=== PATIENT | male | born 1965 | race Caucasian/White ===

== ENCOUNTER → 2017-11-12 07:56 | Outpatient (CLI) | payer BC | END | disposition home or self-care (01) | LOC: D.CT 07:56 | DX: K57.32 Diverticulitis of large intestine without perforation or abscess without bleeding (principal); K57.92 Diverticulitis of intestine, part unspecified, without perforation or abscess without bleeding ==

== ENCOUNTER → 2017-11-25 07:49 | Outpatient (CLI) | payer BC ==
[2017-11-25 08:33] LABS: ALBUMIN 3.7 g/dL (3.4-5.0); ALKALINE PHOSPHATASE 75 U/L (46-116); ALT (SGPT) 38 U/L (10-68); BILIRUBIN - DIRECT 0.17 mg/dL (0.00-0.30); BILIRUBIN - TOTAL 1.07 mg/dL (0.2-1.3); CALC OSMOLALITY 278 mosm/kg (275-300); CALCIUM 8.8 mg/dL (8.5-10.1); CARBON DIOXIDE 31.1 mmol/L (21.0-32.0); CHLORIDE - SERUM 102 mmol/L (98-107); CHOL - HDL RATIO 5.1 ratio (2.3-4.9); CHOLESTEROL, TOTAL 169 mg/dL (0-200); CREATININE - SERUM 0.9 mg/dL (0.6-1.3); GLUCOSE 141 mg/dL (74-106); HDL CHOLESTEROL 33 mg/dL (32-96); LDL CHOLESTEROL 94 mg/dL (0-100); LDL-HDL RATIO 2.8 ratio (1.5-3.5); POTASSIUM - SERUM 4.2 mmol/L (3.5-5.1); PROTEIN - SERUM 7.3 g/dL (6.4-8.2); SODIUM 139 mmol/L (136-145); TRIGLYCERIDE 211 mg/dL (30-200); UREA NITROGEN 10 mg/dL (7-18); eGFR NON AFRICAN AMERICAN > 90 mL/min (90-120)
== END | disposition home or self-care (01) ==
LOC: D.LAB 07:49
PROVIDERS: Internal Medicine Gastroenterology
DX: K76.0 Fatty (change of) liver, not elsewhere classified (principal)

== ENCOUNTER 2020-05-01 09:21 | Day surgery (SDC) | payer BC ==
[~2020-05-01] VITALS: Ht 172.7 cm; Wt 90.9 kg
--- NOTE | ~2020-05-01 | OP ---
PATIENT NAME: RENATO MEAD MEDICAL RECORD: [id number] :61 LOCATION:D.OPS ADMISSION DATE: SURGEON: YRAN FANG MD DATE OF OPERATION: 05/01/2020 PREOPERATIVE DIAGNOSIS: Hematochezia. POSTOPERATIVE DIAGNOSES: Hematochezia with 1 cecal polyp, sessile, 8 mm. PROCEDURES: 1. Total colonoscopy to cecum. 2. Hot biopsy forceps polypectomy times 1. SURGEON: Ryan Fang MD CLASS A REGIONAL DRIVERS: None. BLOOD LOSS: Minimal. ANESTHESIA: IV sedation. COMPLICATIONS: None. The risks, possible complications, and alternatives to the procedure were explained to the patient. He elects to proceed. ENDOSCOPIC COURSE: The patient was conveyed to the endoscopy suite electively on 05/01/2020. IV sedation was induced by anesthesia staff. The patient was placed in the Jimenez position. A digital rectal examination was performed. A colonoscope was inserted through the anus. It was easily advanced to the cecum. The prep was marginal. I slowly withdrew the endoscope. I irrigated and aspirated extensively. I dragged the folds. The pullback was greater than a 15-minute pullback. Within the cecum, there was 1 polyp which was removed in its entirety utilizing the hot biopsy forceps polypectomy technique. I noted no other polyps or masses. A retroflexed view was obtained in the rectum. I noted inflamed internal hemorrhoids, likely the source of the patient's hematochezia. I then unretroflexed the scope and removed it under direct vision. I will see the patient in my office in 2-3 weeks. I will plan for his next colonoscopy to take place in 3 years. TRANSINT:[id number] Voice Confirmation ID: [id number] DOCUMENT ID: [id number] RYAN FANG MD CC: LENARD SOLO [id number] DICTATION DATE: 05/01/20 1319 ALTERATION SPECIALIST: 05/01/20 2208 [facility] 05/01/20 [place] [id number]
[2020-05-01 09:57] LABS: POTASSIUM - SERUM 3.9 mmol/L (3.5-5.1)
[2020-05-01] MEDS ORDERED: GLUCOPHAGE500 MG PO (10:26)
[2020-05-01] MEDS ORDERED: LISINOPRIL10 MG PO (10:27)
[2020-05-01] MEDS ORDERED: OMEPRAZOLE40 MG PO (10:32)
[2020-05-01 10:39] LABS: HEMATOCRIT 44.8 % (42.0-54.0); MCH 32.3 pg (26.0-34.0); MCHC 35.7 g/dL (31.0-37.0); MCV 90.3 fL (80.0-100.0); MEAN PLATELET VOLUME 9.2 fL (7.4-10.4); RBC 4.96 10x6/uL (4.20-6.10); RDW 13.1 % (11.5-14.5); WBC 7.9 10x3/uL (4.8-10.8)
[2020-05-01 10:55] LABS: ANION GAP 9.9 mmol/L (8-16); CALCIUM 9.1 mg/dL (8.5-10.1); CREATININE - SERUM 1.1 mg/dL (0.6-1.3)
[2020-05-01 11:01] VITALS: Ht 172.7 cm; Wt 90.9 kg
--- NOTE | 2020-05-01 14:32 | NUR ---
1405 IV DC'ED WITH CATH INTACT & 100ML LTC. DRESSING. Ledy LRAES R.N. 1415 DRESSED. AWAKE & ALERT. GIVEN DISCHARGE INFORMATION INCLUDING: RX'S 2: RECTAL ROACKETS & FLAGYL, MED REC, SHEET LISTING NSAIDS TO AVOID, RTC APPT., & [facility] POST ENDOSCOPIC D/C INSTRUCTIONS. PT VOICED UNDERSTANDING. TO PRIVATE CAR PER WHEELCHAIR BY STAFF. HOME WITH , NUNO MEAD. Ledy LARES R.N.
--- NOTE | 2020-05-01 18:31 | HP ---
PATIENT: RENATO MEAD MEDICAL RECORD: [id number] ACCOUNT: [id number] LOCATION:[facility] : 61 ADMISSION DATE: 05/01/20 PCP: LENARD SOLO MD HISTORY AND PHYSICAL EXAMINATION CHIEF COMPLAINT: Rectal bleeding. HISTORY OF PRESENT ILLNESS: The patient was having rectal bleeding. No melena. He is unsure whether he has had a history of colon polyps or not in the past. He does have colonic diverticulosis. He is here today for colonoscopy. A consent form has been signed. HOME MEDICINES: Lisinopril and metformin. PAST MEDICAL AND SURGICAL HISTORY: Hypertension as well as noninsulin-dependent diabetes mellitus. REVIEW OF SYSTEMS: Negative for CHF or seizures. Negative for CVA or thyroid problems. ALLERGIES: No known drug allergies. PHYSICAL EXAMINATION: GENERAL: The patient does not appear acutely ill. He does not appear chronically ill. VITAL SIGNS: Reviewed. EARS: External ears appear normal. EYES: Extraocular movements are intact. NECK: Trachea is midline. CHEST: No intercostal retractions. PULMONARY: Nonlabored and no stridor. IMPRESSION: Hematochezia. PLAN: Plan will be colonoscopy. TRANSINT:[id number] Voice Confirmation ID: [id number] DOCUMENT ID: [id number] ELLIS FAGN MD at 1831 CC: LENARD SOLO [id number] DICTATION DATE: 05/01/20 1244 OUTCOMES ANALYST: 05/01/20 1307 [facility] 05/01/20 [place] [id number] [place] [id number]
== END 2020-05-01 14:15 | disposition home or self-care (01) ==
LOC: D.OPS 09:21
PROVIDERS: Anesthesiology; ATTEND Surgery
DX: K92.1 Melena (principal); K63.5 Polyp of colon; I10 Essential (primary) hypertension; E11.9 Type 2 diabetes mellitus without complications; Z79.84 Long term (current) use of oral hypoglycemic drugs